=== PATIENT | male | born 1990 | race Caucasian/White ===

== ENCOUNTER 2019-01-14 06:00 | Emergency (ER) | payer MEDICAID, OTHER ==
[~2019-01-14] VITALS: Ht 172.7 cm; Wt 86.1 kg
[2019-01-14 06:06] VITALS: BP 125/78; PULSE 91; RESP 18; Ht 172.7 cm; Wt 86.1 kg
[2019-01-14] MEDS ORDERED: ONDANSETRON (ODT) 4 MG TAB ODT STA (06:32)
[2019-01-14] MEDS ORDERED: morphine 4 MG/ML VIAL IM STA (06:32)
[2019-01-14] MEDS ORDERED: TRAM50TA2 PO (06:34)
--- NOTE | 2019-01-14 07:16 | ERD ---
ER Documentation Chief Complaint Chief Complaint pain left wrist, noted with arm splint, states has fx, unable to fill rx HPI 28-year-old male presenting with pain to his left wrist. Patient had surgery yesterday on the ulna and radius. He states he is unable to fill his pain medication prescription due to lack of money and is in significant amount of pain. Patient states he was given Hersey. Patient is right-hand dominant. Had surgery done at all of you. Medical history is asthma. Thinks he is allergic to ibuprofen Tylenol and aspirin but is not 100% certain. Patient reports taking ibuprofen yesterday and does not report any reaction. Surgical history of the Ortho surgery. Social history denies ROS All systems reviewed and are negative except as per history of present illness. Medications Home Meds Active Scripts Tramadol HCl (Tramadol HCl) 50 Mg Tablet, 50 MG PO Q4 PRN for PAIN, #20 TAB Prov:JUSTINA RUSSO PA-C 01/14/19 Allergies Allergies: Coded Allergies: acetaminophen (Verified Allergy, Severe, RESPIRATORY DISTRESS, 06/15/14) ibuprofen (Verified Allergy, Severe, RESPIRATORY DISTRESS, 06/15/14) aspirin (Verified Allergy, Unknown, RESPIRATORY DISTRESS, 06/15/14) PMhx/Soc History of Surgery: Yes (L arm sx) Anesthesia Reaction: No Hx Neurological Disorder: No Hx Respiratory Disorders: Yes (asthma) Hx Cardiac Disorders: No Hx Psychiatric Problems: No Hx Miscellaneous Medical Probl: No Hx Alcohol Use: No Hx Substance Use: No Hx Tobacco Use: No Smoking Status: Never smoker FmHx Family History: No diabetes, No coronary disease, No other Physical Exam Vitals Vital Signs Date Temp Pulse Resp B/P (MAP) Pulse Ox O2 O2 Flow FiO2 Time Delivery Rate 01/14/19 97.9 91 18 125/78 99 06:06 (94) Physical Exam GENERAL: The patient is well-appearing, well-nourished, in no acute distress CHEST: Clear to auscultation bilaterally. There are no rales, wheezes or rhonchi. HEART: Regular rate and rhythm. No murmurs, clicks, rubs or gallops. EXTREMITIES: Splint in place to left upper extremity. Neuro intact to the distal fingertips with movement intact. Compartments appear soft. NEUROLOGIC: Alert and oriented. Cranial nerves II through XII intact. Motor strength in all 4 extremities with 5 out of 5 strength. Sensation grossly intact. Normal speech and gait. SKIN: There is no apparent rash or petechiae. The skin is warm and dry. Results 24 hrs Current Medications Medications Dose Sig/Aba Start Time Status Last (Trade) Ordered Route PRN Stop Time Admin Dose Reason Admin Morphine 4 mg ONCE STAT 01/14/19 DC 01/14/19 Sulfate IM 06:32 01/14/19 06:38 (morphine) 06:33 Ondansetron 4 mg ONCE STAT 01/14/19 DC 01/14/19 HCl (Zofran ODT 06:32 01/14/19 06:38 Odt) 06:33 Procedures/MDM ER course: Morphine given in the ED. MDM: 28-year-old male presenting with left wrist pain. Patient has postoperat stanislav pain. I have low suspicion for complication due to surgery and I do not feel there is indication for blood work or further imaging. Patient has not been able to fill his pain medication and currently has no pain medication on board to control pain. Patient will be discharged with new prescription. There is some question as to patient's allergies so I will write for tramadol given he has possible allergies to Tylenol and ibuprofen. Patient is discharged with strict ER precautions. All questions answered at discharge Departure Diagnosis: Primary Impression: Post-op pain Condition: Stable Patient Instructions: Post Op Wound Check, Pain Referrals: [facility] YOU HAVE RECEIVED A MEDICAL SCREENING EXAM AND THE RESULTS INDICATE THAT YOU DO NOT HAVE A CONDITION THAT REQUIRES URGENT TREATMENT IN THE EMERGENCY DEPARTMENT. FURTHER EVALUATION AND TREATMENT OF YOUR CONDITION CAN WAIT UNTIL YOU ARE SEEN IN YOUR DOCTORS OFFICE WITHIN THE NEXT 1-2 DAYS. IT IS YOUR RESPONSIBILITY TO MAKE AN APPOINTMENT FOR FOLOW-UP CARE. IF YOU HAVE A PRIMARY DOCTOR --you should call your primary doctor and schedule an appointment IF YOU DO NOT HAVE A PRIMARY DOCTOR YOU CAN CALL OUR PHYSICIAN REFERRAL HOTLINE AT IF YOU CAN NOT AFFORD TO SEE A PHYSICIAN YOU CAN CHOSE FROM THE FOLLOWING [facility] [address] [facility] [address] [facility]. [facility] [address] [facility] [address] [facility]. [facility] [address] [facility]. [facility] [address] Additional Instructions: FOLLOW UP WITH YOUR PRIMARY CARE PHYSICIAN TOMORROW.Return to this facility if you are not improving as expected. JUSTINA RUSSO PA-C Jan 14, 2019 07:16
== END 2019-01-14 06:53 | disposition home or self-care (01) ==
LOC: FTE 06:00
DX: G89.18 Other acute postprocedural pain (principal); J45.909 Unspecified asthma, uncomplicated
CPT/HCPCS: 96372; 99284; J2270